=== PATIENT | female | born 1965 | race American Indian/Alaskan Native ===

== ENCOUNTER 2017-09-17 06:16 | Inpatient (IN) | payer BC, MEDICARE ==
[2017-09-17 07:21] LABS: URINE BILIRUBIN NEGATIVE (NEGATIVE); URINE BLOOD TRACE-INTACT (NEGATIVE); URINE GLUCOSE (UA) NEGATIVE (NEGATIVE); URINE LEUKOCYTE ESTERASE NEGATIVE Leu/uL (NEGATIVE); URINE PROTEIN NEGATIVE mg/dL (<30 mg/dL); URINE UROBILINOGEN 0.2 E.U./dL (<1 E.U./dL)
[2017-09-17 07:30] LABS: URINE APPEARANCE CLEAR (CLEAR); URINE COLOR YELLOW (YELLOW)
[2017-09-17] MEDS ORDERED: Propofol 10 mg/ml Inj (20 ML) ONE (07:31)
[2017-09-17] MEDS ORDERED: Midazolam 2 MG/2 ML VIAL ONE (07:31)
[2017-09-17 07:36] LABS: URINE BACTERIA FEW (NEG); URINE RBC 0 - 2 /hpf (0-2)
[2017-09-17] MEDS ORDERED: Rocuronium 10 mg/ml (5 ml) ONE (07:38)
[2017-09-17] MEDS ORDERED: Tranexamic Acid 1 ML ONE ×2 (08:25→10:57)
[2017-09-17] MEDS ORDERED: Desflurane Inhalation Anesthetic Liq (240 ml) ONE (08:31)
[2017-09-17] MEDS ORDERED: Neostigmine Methylsulfate 3mg/3ml Syringe IV ONE (09:26)
[2017-09-17] MEDS ORDERED: Morphine 1 mg/ml preservative-free Inj(Duramorph) ONE (09:27)
[2017-09-17] MEDS ORDERED: Sodium Chloride 0.9% 40 ML IV ONE (09:50)
[2017-09-17] MEDS ORDERED: Vancomycin 1 g Inj ONE (10:32)
[2017-09-17] MEDS ORDERED: Bupivacaine Liposomal Inj 20 ml INJ ONE (11:38)
--- NOTE | 2017-09-17 12:05 | CP.PCM.HP ---
History of Present Illness - History of Present Illness History of Present Illness: 51 F who failed conservative management, elected for a right total hip arthroplasty no hx of bleeding or blood clots, RI or stents NKDA Present on Admission - Present on Admission Any Indicators Present on Admission: No History of DVT/PE: No Past Patient History - Infectious Disease Hx of Infectious Diseases: None - Tetanus Immunizations Tetanus Immunization: Unknown - Past Medical History & Family History Past Medical History?: Yes - Past Social History Smoking Status: Light Smoker < 10 Cigarettes Daily - NEUROLOGICAL Hx Paralysis: No - HEMATOLOGICAL/ONCOLOGICAL Hx Blood Disorders: Yes Hx Anemia: Yes Hx Blood Transfusions: Yes Hx Blood Transfusion Reaction: No - INTEGUMENTARY Hx Dermatological Problems: Yes Hx Eczema: Yes (fingers) - MUSCULOSKELETAL/RHEUMATOLOGICAL Hx Back Pain: Yes - GASTROINTESTINAL Hx Gastrointestinal Disorders: Yes - SURGICAL HISTORY Hx Joint Replacement: Yes (Left 06/2014 Revision 07/2014 hip) - ANESTHESIA Hx Anesthesia Reactions: No Hx Malignant Hyperthermia: No Meds Allergies/Adverse Reactions: Allergies Allergy/AdvReac Type Severity Reaction Status Date / Time FISH Allergy Intermediate VOMITING Verified 09/03/17 12:21 peanut Allergy Intermediate SHORTNESS Verified 09/03/17 12:21 OF BREATH Physical Exam - Constitutional Appears: Well, No Acute Distress - Head Exam Head Exam: NORMAL INSPECTION - Neck Exam Neck exam: Positive for: Normal Inspection - Respiratory Exam Respiratory Exam: NORMAL BREATHING PATTERN - Cardiovascular Exam Cardiovascular Exam: RRR - Extremities Exam Additional comments: Calf soft nontender. NVI distally - Expanded Lower Extremities Exam Right Hip exam: shortening Knee exam: normal inspection - Neurological Exam Neurological exam: Alert, Oriented x3 - Psychiatric Exam Psychiatric exam: Normal Affect, Normal Mood - Skin Skin Exam: Dry, Intact, Normal Color Assessment & Plan (1) Osteoarthritis of right hip Status: Acute (2) Osteoarthritis of right hip Status: Acute - Assessment and Plan (Free Text) Plan: Right total hip replacement Type and Screen NPO Labs reviewed Patient medically optimized for a right total hip replacement
[2017-09-17] MEDS ORDERED: HYDROmorphone 0.5 mg/0.5 ml ISec IVP PRN (12:15)
[2017-09-17] MEDS ORDERED: oxyCODONE 10 mg Immediate Release Tab PO PRN (12:42)
--- NOTE | 2017-09-17 13:07 | RAD ---
PROCEDURE: Radiographs of the pelvis. HISTORY: s/p R ANGELIKA COMPARISON: Left hip with pelvis 09/15/2015. FINDINGS: BONES: Pelvic Bones: No interval fracture or dislocation identified. The pubic symphysis remains intact. No destructive bony lesion identified. Interval right total replacement is been identified as well as revision of prior left shoulder replacement. In both full portion of the femoral component is not included in this exam with the tip off the image. Hips: Grossly unremarkable. JOINTS: Sacroiliac Joints: Interval right total replacement with adequate result achieved. Apparent prior revision of left total replacement. Bilateral sacroiliac joints appear remarkable for limited degenerative joint disease symmetrically. Pubic Symphysis: Unremarkable. OTHER FINDINGS: Postop soft tissue edematous changes seen in the right hip soft tissues locally. IMPRESSION: Interval right total replacement with limited postop changes seen in local soft tissues and interval left hip replacement revision.
[2017-09-17] MEDS: HYDROmorphone 1 mg/ml ISec IVP PRN ×2 (15:19→21:25)
[2017-09-17] MEDS: Sodium Chloride 0.9% 1,000 ML IV SCH (15:21)
[2017-09-17 18:11] VITALS: BMI 33.3
--- NOTE | 2017-09-17 23:56 | OP ---
PROCEDURE DATE: 09/17/2017 PREOPERATIVE DIAGNOSES: Right hip arthritis and limb length discrepancy. POSTOPERATIVE DIAGNOSES: Right hip arthritis and limb length discrepancy. PROCEDURE: Right total hip arthroplasty. SURGEON: Main Whyte MD. HEDIS REVIEW NURSE: Dr. Whyte is assisted by Ciera Mathias, the physician product safety technical assistant and Marilee Guzman, the physician product safety technical assistant. Both physician assistants were scrubbed and present throughout the entire case and helped with patient positioning, holding of the leg during the case, retraction as well as wound closure. TYPE OF ANESTHESIA: General. COMPLICATIONS: None. ESTIMATED BLOOD LOSS: 150 mL. IMPLANT: Biomet dual mobility total hip. INDICATIONS FOR PROCEDURE: This is a 51-year-old female with longstanding right hip and groin pain. Clinical examination was consistent with pain with weightbearing. Decreased passive and active internal and external rotation and approximately 2 cm limb length discrepancy. Radiographic examination consistent with advanced degenerative joint disease of the hip. After a period of failed nonsurgical management, recommendations were for a right total hip arthroplasty. The risks, benefits and alternatives of procedure were discussed with the patient and an informed consent was obtained. DESCRIPTION OF PROCEDURE: After the surgical site was signed and verified in the preoperative holding area, the patient was taken to the operating room and placed supine on the operating table. After administration of general anesthesia, the patient received 3 g of Ancef IV. The patient was positioned in the lateral decubitus position with the right hip up towards the ceiling. Venodyne boot was placed on the nonoperative extremity. Care was taken to make sure all bony prominences and nerves were well padded and protected and the right lower extremity was prepped and draped in the usual sterile fashion. The 2 pins for the Intellijoint were inserted in the iliac crest and at this point, approximately 12 cm curvilinear incision was made over the proximal femur. Soft tissue was dissected sharply down to the fascia. The fascia was incised. Charnley retractor was placed. The greater troc was exposed and the plate for the Intellijoint was then placed on the greater troc and screwed into place. At this point, short external rotators were identified, tagged and resected off the proximal femur. T-type capsulotomy was performed and the hip was dislocated. Based on preoperative template, our femoral neck resection was performed and the femoral neck was removed and passed off the field as a specimen. At this point, an anterior capsulotomy was performed exposing the acetabulum. Acetabulum labrum was excised and at this point, the acetabulum was reamed sequentially to allow for a 52 mm press-fit cup. Care was taken to maintain proper acetabular height and version. With the trial cup was placed and with the assistance of the Intellijoint, satisfied with our position. The trial was removed and the hip was pulse lavaged with antibiotic saline solution. Bony surfaces were dried and the actual cup was impacted into place. The cup was then fixed with 2 screws. At this point, our attention was directed to the femur. The medullary canal of the proximal femur was reamed and broached sequentially to allow for a 11 mm press-fit stem. The calcar was planed and a trial head and neck were placed. The hip was reduced and the patient was noted to have approximately equal limb lengths and stable. At this point, the hip was dislocated and the trial components were removed. The hip was once again pulse lavaged and the actual acetabular liner was then impacted into place. The actual stem was then also impacted and moving it careful to maintain proper version. The actual head was then impacted over the neck and the hip was reduced and gain noted to be stable with approximately equal limb lengths. At this point, the hip was pulse lavaged and closed in a layered fashion. A MERCEDSE dressing was applied and the patient was transferred supine, awakened and taken to the recovery room in stable condition. Main Whyte MD
[2017-09-18] MEDS: Sodium Chloride 0.9% 1,000 ML IV SCH ×2 (00:35→10:04)
[2017-09-18] MEDS: HYDROmorphone 1 mg/ml ISec IVP PRN ×4 (04:42→22:14)
--- NOTE | 2017-09-18 05:47 | CON ---
DATE: HISTORY OF PRESENT ILLNESS: The patient is a 51-year-old, black female known to me from office practice, has been having chronic right hip pain for very long time, had elective surgery scheduled for today for total right hip replacement and arthroplasty. The patient has been on high dose of narcotics for very long time. PAST MEDICAL HISTORY: Significant for: 1. Chronic anemia. 2. History of total hip replacement in June of 2014 that was revised in November of 2015. 3. History of gastroesophageal reflux disease. 4. Chronic back pain. 5. History of anemia. ALLERGIES: SHE IS ALLERGIC TO FISH AND PEANUTS. MEDICATIONS AT HOME: She is on Xanax 0.25 at bedtime, she is on oxycodone 30 mg four times a day, gabapentin 600 three times a day, Celebrex 200 daily. SOCIAL HISTORY: She is , lives with her . Still smokes. She used to be a heavy smoker in the past. REVIEW OF SYSTEMS: Significant for right hip pain. PHYSICAL EXAMINATION GENERAL: She is awake, alert, oriented, seen in PACU, complaining of pain to the surgical site. VITAL SIGNS: She is afebrile, pulse 80, respirations 20, blood pressure 149/79. LUNGS: Bilateral good airflow. No rhonchi or crackles. HEART: S1 and S2 audible. ABDOMEN: Soft, nontender. No rebound. No guarding. NEUROLOGICAL: The patient is awake, alert, oriented, communicative. LABORATORY DATA: No new lab available today. ASSESSMENT: 1. Status post total right hip replacement. 2. Gastroesophageal reflux disease. 3. History of gastritis. 4. Anxiety disorder. PLAN: The patient is currently on cefazolin every 8. We will start her on laxatives. She is on analgesics. Eliquis had been started by surgical team. She is on IV fluids. We will follow up her CBC, CMP in a.m. Gala Vallecillo MD
[2017-09-18 06:28] LABS: BASO # 0.01 K/mm3 (0.0-2.0); BASO % 0.1 % (0.0-3.0); EOS % 0.4 % (1.5-5.0); GRAN # 7.12 (1.4-6.5); GRAN % 73.7 % (50.0-68.0); LYMPH # 1.4 (1.2-3.4); LYMPH % 14.6 % (22.0-35.0); MEAN CELL VOLUME 93.4 fl (80.0-105.0); MEAN CORPUSCULAR HEMOGLOBIN 30.5 pg (25.0-35.0); MEAN CORPUSCULAR HGB CONC 32.6 g/dl (31.0-37.0); MEAN PLATELET VOLUME 9.9 fl (7.0-11.0); MONO # 1.1 (0.1-0.6); MONO % 11.2 % (1.0-6.0); RBC 2.59 10^6/uL (3.5-6.1); RED CELL DISTRIBUTION WIDTH 14.5 % (11.5-14.5); WHITE BLOOD COUNT 9.7 10^3/ul (4.5-11.0)
[2017-09-18 06:47] LABS: HEMOGLOBIN 7.9 g/dL (12.0-16.0)
[2017-09-18 06:50] LABS: BLOOD UREA NITROGEN 4 mg/dL (7-21); CALCIUM 8.6 mg/dL (8.4-10.5); GFR AFRICAN-AMERICAN > 60; GFR NON-AFRICAN AMERICAN > 60
[2017-09-18] MEDS ORDERED: Potassium Chloride 20 mEq ER Tab PO ONE (07:53)
--- NOTE | 2017-09-18 08:32 | CP.PCM.PN ---
Subjective - Date & Time of Evaluation Date of Evaluation: 09/18/17 Time of Evaluation: 08:06 - Subjective Subjective: Patient POD#1 s/p R ANGELIKA. Patient alert and awake, sitting up in bed, comfortable. Patient states pain is controlled. Hip abduction pillow is in place afebrile now, max temp 101.2 WBC:9.7 Hgb 7.9 R hip: dressings are dry and intact. Patient can actively perform dorsi and plantar flexion with good strength. Sensation is intact to light touch. Calf and thigh are soft nontender. NVI distally POD#1 s/p R ANGELIKA Cont PT Cont hip abduction pillow at all times while in bed Venofer 100mg given, will monitor hgb Potassium 3.3, Kdur20 given. Cont DVT prophylaxis Dressing changes tomorrow. Objective - Vital Signs/Intake and Output Vital Signs (last 24 hours): Temp Pulse Resp BP Pulse Ox 98.6 F 92 H 20 145/76 100 09/18/17 07:17 09/17/17 23:19 09/17/17 23:19 09/17/17 23:19 09/17/17 23:19 Intake and Output: 09/18/17 09/18/17 06:59 18:59 Intake Total 660 Output Total 1125 Balance -465 - Medications Medications: Current Medications Acetaminophen (Tylenol 325mg Tab) 650 mg PO Q6 [facility] Last Admin: 09/18/17 06:17 Dose: 650 mg Alprazolam (Xanax) 0.25 mg PO HS PRN; Protocol PRN Reason: Sleep Stop: 09/24/17 12:45 Apixaban (Eliquis) 2.5 mg PO BID [facility] PRN Reason: Protocol Docusate Sodium (Colace) 100 mg PO BID [facility] Last Admin: 09/17/17 18:25 Dose: 100 mg Gabapentin (Neurontin) 600 mg PO TID PRN; Protocol PRN Reason: Pain, moderate (4-7) Hydromorphone HCl (Dilaudid) 1 mg IVP Q4H PRN PRN Reason: Pain, severe (8-10) Last Admin: 09/18/17 04:42 Dose: 1 mg Sodium Chloride (Sodium Chloride 0.9%) 1,000 mls @ 100 mls/hr IV .Q10H [facility] Last Admin: 09/18/17 00:35 Dose: 100 mls/hr Multivitamins/Minerals (Therapeutic-M Tab) 1 tab PO DAILY [facility] Ondansetron HCl (Zofran Inj) 4 mg IVP ONCE PRN PRN Reason: Nausea/Vomiting Oxycodone HCl (Oxycodone Immediate Release Tab) 10 mg PO Q6H PRN PRN Reason: Pain, moderate (4-7) - Labs Labs: 09/18/17 06:00 09/18/17 06:00 Assessment and Plan (1) Osteoarthritis of right hip Status: Acute (2) Osteoarthritis of right hip Status: Acute
[2017-09-18] MEDS: Multivitamin With Minerals Tab PO SCH (10:08)
--- NOTE | 2017-09-18 13:29 | PN ---
DATE: SUBJECTIVE: The patient is 51 years old, seen and examined, sitting in chair, got out of bed. Complained of pain at surgical site. PHYSICAL EXAMINATION: VITAL SIGNS: She has a temperature of 101.2, pulse 93, respirations 18, blood pressure 106/51. LUNGS: Bilateral fair airflow. No rhonchi or crackle. HEART: S1 and S2 audible. ABDOMEN: Soft. Nontender. No rebound. No guarding. NEUROLOGIC: The patient is awake and alert and communicative. EXTREMITIES: Right leg, no edema. Able to wiggle her toes. LABORATORY EXAM: WBC is 9.7, hemoglobin 7.9, hematocrit 24.2, platelet of 237. Chemistry: Sodium 137, potassium 3.3, chloride 105, CO2 of 27, BUN 4, creatinine 0.6, blood sugar of 116. ASSESSMENT: 1. Status post right hip replacement and reconstruction surgery. 2. Anemia. 3. Hypokalemia. 4. Anxiety disorder. PLAN: The patient is given dose of potassium, also received iron infusion. We will follow up CBC and CMP. If her hemoglobin is below 8, might need blood transfusion. We will follow up this patient in the a.m. Gala Vallecillo MD
[2017-09-18] MEDS: Cholecalciferol 1,000 INTLU TAB PO SCH (17:11)
[2017-09-19] MEDS: Sodium Chloride 0.9% 1,000 ML IV SCH
[2017-09-19] MEDS: HYDROmorphone 1 mg/ml ISec IVP PRN ×4 (04:16→22:19)
[2017-09-19 07:22] LABS: BASO # 0.01 K/mm3 (0.0-2.0); BASO % 0.1 % (0.0-3.0); EOS # 0.1 (0.0-0.7); EOS % 1.2 % (1.5-5.0); GRAN # 8.92 (1.4-6.5); GRAN % 78.7 % (50.0-68.0); HEMOGLOBIN 7.4 g/dL (12.0-16.0); LYMPH # 1.3 (1.2-3.4); LYMPH % 11.6 % (22.0-35.0); MEAN CELL VOLUME 93.1 fl (80.0-105.0); MEAN CORPUSCULAR HEMOGLOBIN 30.1 pg (25.0-35.0); MEAN CORPUSCULAR HGB CONC 32.3 g/dl (31.0-37.0); MEAN PLATELET VOLUME 10.1 fl (7.0-11.0); MONO % 8.4 % (1.0-6.0); RBC 2.46 10^6/uL (3.5-6.1); RED CELL DISTRIBUTION WIDTH 14.5 % (11.5-14.5); WHITE BLOOD COUNT 11.3 10^3/ul (4.5-11.0)
[2017-09-19 07:37] LABS: BLOOD UREA NITROGEN 4 mg/dL (7-21); CALCIUM 8.9 mg/dL (8.4-10.5); GFR AFRICAN-AMERICAN > 60; GFR NON-AFRICAN AMERICAN > 60
[2017-09-19] MEDS ORDERED: Potassium Chloride 20 mEq ER Tab PO ONE ×2 (08:49→17:54)
[2017-09-19] MEDS ORDERED: Ergocalciferol 50,000 Intl Units Cap PO SCH (09:00)
--- NOTE | 2017-09-19 09:13 | CP.PCM.PN ---
Subjective - Date & Time of Evaluation Date of Evaluation: 09/19/17 Time of Evaluation: 09:05 - Subjective Subjective: Patient POD#2 s/p R ANGELIAK. Patient alert and awake. Laying in bed. Denies any significant pain, dizziness or lightheadedness. Aferbile WBC 11.3 hgb 7.4 R hip: dressings and MERCEDES wound vac removed. Incision clean and intact. There is no erythema or drainage. No signs of cellulitis. Incision cleaned with NSS and new light dry dressings applied. Sensation intact to light touch. 5/5 strength with resisted dorsi and plantar flexion. Calf and thigh soft nontender. NVI distally POD#2 s/p R ANGELIKA Cont PT Cont DVT prophylaxis Will monitor Hgb Plan to discharge tomorrow to home Objective - Vital Signs/Intake and Output Vital Signs (last 24 hours): Temp Pulse Resp BP Pulse Ox 99.5 F 98 H 20 102/56 L 98 09/19/17 06:00 09/19/17 06:00 09/19/17 06:00 09/19/17 06:00 09/19/17 06:00 Intake and Output: 09/19/17 09/19/17 06:59 18:59 Intake Total 2940 Balance 2940 - Medications Medications: Current Medications Acetaminophen (Tylenol 325mg Tab) 650 mg PO Q6 [facility] Last Admin: 09/19/17 06:13 Dose: 650 mg Alprazolam (Xanax) 0.25 mg PO HS PRN; Protocol PRN Reason: Sleep Stop: 09/24/17 12:45 Apixaban (Eliquis) 2.5 mg PO BID [facility] PRN Reason: Protocol Last Admin: 09/18/17 17:11 Dose: 2.5 mg Cholecalciferol (Vitamin D) 2,000 intlu PO DAILY [facility] Last Admin: 09/18/17 17:11 Dose: 2,000 intlu Docusate Sodium (Colace) 100 mg PO BID [facility] Last Admin: 09/18/17 17:12 Dose: 100 mg Ergocalciferol (Drisdol 50,000 Intl Units Cap) 1 cap PO Q7D [facility] Gabapentin (Neurontin) 600 mg PO TID PRN; Protocol PRN Reason: Pain, moderate (4-7) Hydromorphone HCl (Dilaudid) 1 mg IVP Q4H PRN PRN Reason: Pain, severe (8-10) Last Admin: 09/19/17 04:16 Dose: 1 mg Sodium Chloride (Sodium Chloride 0.9%) 1,000 mls @ 100 mls/hr IV .Q10H [facility] Last Admin: 09/19/17 00:00 Dose: 100 mls/hr Multivitamins/Minerals (Therapeutic-M Tab) 1 tab PO DAILY [facility] Last Admin: 09/18/17 10:08 Dose: 1 tab Ondansetron HCl (Zofran Inj) 4 mg IVP ONCE PRN PRN Reason: Nausea/Vomiting Oxycodone HCl (Oxycodone Immediate Release Tab) 10 mg PO Q6H PRN PRN Reason: Pain, moderate (4-7) Last Admin: 09/18/17 11:53 Dose: 10 mg - Labs Labs: 09/19/17 06:45 09/19/17 06:45 Assessment and Plan (1) Osteoarthritis of right hip Status: Acute (2) Osteoarthritis of right hip Status: Acute
[2017-09-19] MEDS: Cholecalciferol 1,000 INTLU TAB PO SCH (10:50)
[2017-09-19] MEDS: Multivitamin With Minerals Tab PO SCH (10:51)
[2017-09-19 14:21] VITALS: RESP 18
--- NOTE | 2017-09-19 16:55 | PN ---
DATE: SUBJECTIVE: The patient is 51-year-old seen and examined, lying in bed, minimal pain. Complains of feeling weak and tired, dizzy when she gets up. PHYSICAL EXAMINATION: VITAL SIGNS: She is afebrile, pulse 98, respirations 20, blood pressure 102/56. HEART: S1 and S2 audible. LUNGS: Bilateral good airflow. No rhonchi or crackles ABDOMEN: Soft, nontender, no rebound, no guarding. NEUROLOGICAL: The patient is awake and alert, oriented, communicative. EXTREMITIES: Her right foot is warm, able to wiggle her toes. LABORATORY DATA: WBC is 11.3, hemoglobin 7.4, hematocrit 22.9, platelets of 222. Chemistry: Sodium 135, potassium 3.3, chloride 105, CO2 30, BUN 4, creatinine 0.6, blood sugar of 105. ASSESSMENT: 1. Symptomatic anemia. 2. Status post right hip reconstruction surgery. 3. Anemia. 4. Anxiety disorder. PLAN: We will give her 2 blood transfusions. The patient's oral intake is fair. We will discontinue IV fluids, encourage for p.o. fluids. We will follow up CBC and CMP in a.m. Gala Vallecillo MD
[2017-09-19] MEDS ORDERED: DiphenhydrAMINE 50 mg/ml Inj IVP STA (18:56)
[2017-09-19] MEDS ORDERED: DiphenhydrAMINE 50 mg/ml Inj ONE (18:58)
--- NOTE | 2017-09-19 19:02 | CP.PCM.PN ---
Subjective - Date & Time of Evaluation Date of Evaluation: 09/19/17 Time of Evaluation: 18:55 - Subjective Subjective: Received page from RN. Patient recently received transfusion and having some itching. No pre-medications given although patient has been receiving tylenol for pain since her surgery. Seen and examined. No major rash or otherwise noted throughout body but patient does note that she's had transfusions before in the past and her skin is "very sensitive" when it comes to things like this. Added 50mg IVP of benadryl and 100mg IVP of solu-cortef which patient should received as pre-medications in the future for transfusions. RN was able to get in contact with Dr. Vallecillo who said to hold the second transfusion for now. Kennedy Shelley D.O.OMarcel On Duty (DOOD) Objective - Vital Signs/Intake and Output Vital Signs (last 24 hours): Temp Pulse Resp BP Pulse Ox 99.0 F 89 18 125/89 98 09/19/17 17:34 09/19/17 17:34 09/19/17 17:34 09/19/17 17:34 09/19/17 06:00 Intake and Output: 09/19/17 09/19/17 06:59 18:59 Intake Total 2940 1040 Balance 2940 1040 - Medications Medications: Current Medications Acetaminophen (Tylenol 325mg Tab) 650 mg PO Q6 [facility] Last Admin: 09/19/17 18:27 Dose: 650 mg Alprazolam (Xanax) 0.25 mg PO HS PRN; Protocol PRN Reason: Sleep Stop: 09/24/17 12:45 Apixaban (Eliquis) 2.5 mg PO BID [facility] PRN Reason: Protocol Last Admin: 09/19/17 17:41 Dose: 2.5 mg Cholecalciferol (Vitamin D) 2,000 intlu PO DAILY [facility] Last Admin: 09/19/17 10:50 Dose: 2,000 intlu Docusate Sodium (Colace) 100 mg PO BID [facility] Last Admin: 09/19/17 17:41 Dose: 100 mg Gabapentin (Neurontin) 600 mg PO TID PRN; Protocol PRN Reason: Pain, moderate (4-7) Hydromorphone HCl (Dilaudid) 1 mg IVP Q4H PRN PRN Reason: Pain, severe (8-10) Last Admin: 09/19/17 17:40 Dose: 1 mg Multivitamins/Minerals (Therapeutic-M Tab) 1 tab PO DAILY [facility] Last Admin: 09/19/17 10:51 Dose: 1 tab Ondansetron HCl (Zofran Inj) 4 mg IVP ONCE PRN PRN Reason: Nausea/Vomiting Oxycodone HCl (Oxycodone Immediate Release Tab) 10 mg PO Q6H PRN PRN Reason: Pain, moderate (4-7) Last Admin: 09/18/17 11:53 Dose: 10 mg - Labs Labs: 09/19/17 06:45 09/19/17 06:45
[2017-09-19 22:33] VITALS: O2SAT 97
[2017-09-20] MEDS: HYDROmorphone 0.5 mg/0.5 ml ISec IVP PRN ×2 (05:56→10:35)
[2017-09-20 07:25] LABS: BASO # 0.01 K/mm3 (0.0-2.0); BASO % 0.1 % (0.0-3.0); EOS % 0.2 % (1.5-5.0); GRAN # 10.36 (1.4-6.5); GRAN % 81.5 % (50.0-68.0); HEMOGLOBIN 8.4 g/dL (12.0-16.0); LYMPH # 1.4 (1.2-3.4); LYMPH % 11.1 % (22.0-35.0); MEAN CELL VOLUME 91.2 fl (80.0-105.0); MEAN CORPUSCULAR HEMOGLOBIN 29.7 pg (25.0-35.0); MEAN CORPUSCULAR HGB CONC 32.6 g/dl (31.0-37.0); MEAN PLATELET VOLUME 10.3 fl (7.0-11.0); MONO # 0.9 (0.1-0.6); MONO % 7.1 % (1.0-6.0); RBC 2.83 10^6/uL (3.5-6.1); RED CELL DISTRIBUTION WIDTH 16.3 % (11.5-14.5); WHITE BLOOD COUNT 12.7 10^3/ul (4.5-11.0)
[2017-09-20 07:44] LABS: BLOOD UREA NITROGEN 3 mg/dL (7-21); CALCIUM 9.3 mg/dL (8.4-10.5); GFR AFRICAN-AMERICAN > 60; GFR NON-AFRICAN AMERICAN > 60
[2017-09-20 08:40] VITALS: BP 117/55; PULSE 92; TEMP 100
[2017-09-20] MEDS: Multivitamin With Minerals Tab PO SCH (10:14)
[2017-09-20] MEDS: Cholecalciferol 1,000 INTLU TAB PO SCH (10:14)
[2017-09-20] MEDS ORDERED: Potassium Chloride 20 mEq/15 ml LIQ UD PO STA (12:52)
[2017-09-20] MEDS ORDERED: POLYETHYLENE GLYCOL 3350 17 GM/Dose PACKET PO ONE (13:00)
--- NOTE | 2017-09-20 14:14 | CP.PCM.DIS ---
Provider - Provider Date of Admission: 09/17/17 06:16 Attending physician: Gala Vallecillo MD Primary care physician: Gala Vallecillo MD Time Spent in preparation of Discharge (in minutes): 30 Diagnosis - Discharge Diagnosis (1) Osteoarthritis of right hip Status: Acute (2) Osteoarthritis of right hip Status: Acute (3) Vitamin D deficiency Status: Chronic Hospital Course - Lab Results Lab Results: Most Recent Lab Values WBC 12.7 10^3/ul (4.5-11.0) H 09/20/17 06:30 RBC 2.83 10^6/uL (3.5-6.1) L 09/20/17 06:30 Hgb 8.4 g/dL (12.0-16.0) L 09/20/17 06:30 Hct 25.8 % (36.0-48.0) L 09/20/17 06:30 MCV 91.2 fl (80.0-105.0) 09/20/17 06:30 MCH 29.7 pg (25.0-35.0) 09/20/17 06:30 MCHC 32.6 g/dl (31.0-37.0) 09/20/17 06:30 RDW 16.3 % (11.5-14.5) H 09/20/17 06:30 Plt Count 251 10^3/uL (120.0-450.0) 09/20/17 06:30 MPV 10.3 fl (7.0-11.0) 09/20/17 06:30 Gran % 81.5 % (50.0-68.0) H 09/20/17 06:30 Lymph % (Auto) 11.1 % (22.0-35.0) L 09/20/17 06:30 [place] % (Auto) 7.1 % (1.0-6.0) H 09/20/17 06:30 Eos % (Auto) 0.2 % (1.5-5.0) L 09/20/17 06:30 Baso % (Auto) 0.1 % (0.0-3.0) 09/20/17 06:30 Gran # 10.36 (1.4-6.5) H 09/20/17 06:30 Lymph # (Auto) 1.4 (1.2-3.4) 09/20/17 06:30 [place] # (Auto) 0.9 (0.1-0.6) H 09/20/17 06:30 Eos # (Auto) 0.0 (0.0-0.7) 09/20/17 06:30 Baso # (Auto) 0.01 K/mm3 (0.0-2.0) 09/20/17 06:30 Sodium 138 mmol/L (132-148) 09/20/17 06:30 Potassium 3.4 mmol/L (3.6-5.0) L 09/20/17 06:30 Chloride 104 mmol/L (98-107) 09/20/17 06:30 Carbon Dioxide 27 mmol/L (21-33) 09/20/17 06:30 Anion Gap 10 (10-20) 09/20/17 06:30 BUN 3 mg/dL (7-21) L 09/20/17 06:30 Creatinine 0.5 mg/dl (0.7-1.2) L 09/20/17 06:30 Est GFR ( Amer) > 60 09/20/17 06:30 Est GFR (Non-Af Amer) > 60 09/20/17 06:30 Random Glucose 128 mg/dL (70-110) H 09/20/17 06:30 Calcium 9.3 mg/dL (8.4-10.5) 09/20/17 06:30 25-OH Vitamin D Total < 12.8 NG/ML (30.0-100.0) L 09/18/17 06:00 Urine Color Yellow (YELLOW) 09/17/17 06:51 Urine Appearance Clear (CLEAR) 09/17/17 06:51 Urine pH 6.0 (4.7-8.0) 09/17/17 06:51 Ur Specific [place] >= 1.030 (1.005-1.035) 09/17/17 06:51 Urine Protein Negative mg/dL (<30 mg/dL) 09/17/17 06:51 Urine Glucose (UA) Negative mg/dL (NEGATIVE) 09/17/17 06:51 Urine Ketones Negative mg/dL (NEGATIVE) 09/17/17 06:51 Urine Blood Trace-intact (NEGATIVE) H 09/17/17 06:51 Urine Nitrate Negative (NEGATIVE) 09/17/17 06:51 Urine Bilirubin Negative (NEGATIVE) 09/17/17 06:51 Urine Urobilinogen 0.2 E.U./dL (<1 E.U./dL) 09/17/17 06:51 Ur Leukocyte Esterase Negative Raman/uL (NEGATIVE) 09/17/17 06:51 Urine RBC 0 - 2 /hpf (0-2) 09/17/17 06:51 Urine WBC 2 - 5 /hpf (0-6) 09/17/17 06:51 Ur Epithelial Cells 4 - 5 /hpf (0-5) 09/17/17 06:51 Urine Bacteria Few (NEG) 09/17/17 06:51 Blood Type B NEGATIVE 09/17/17 07:00 Antibody Screen Negative 09/17/17 07:00 Crossmatch See Detail 09/17/17 07:00 BBK History Checked Patient has bt 09/17/17 07:00 - Hospital Course Hospital Course: 51F with PMH: with right hip osteoarthritis failed conservative management and elected for THR. Postoperative imaging demonstrated acceptable position of prosthesis. Medical consultation was requested for post operative medical management. Patients post operative course was complicated by acute blood loss anemia, for which patient received PRBC transfusion of 1 unit. Patient tolerated PT/OT well. Patient received VTE prophylaxis in the form of Eliquis 2.5mg BID and venodynes. PT was discharged to home with home physical therapy and visiting nurse for wound care and continued on home medications as well as the Eliquis. Patient was WBAT RLE, and to f/u Dr. Whyte within 2 weeks. Discharge Exam - Head Exam Head Exam: NORMAL INSPECTION, NORMOCEPHALIC - Respiratory Exam Respiratory Exam: NORMAL BREATHING PATTERN - Cardiovascular Exam Cardiovascular Exam: RRR - Extremities Exam Additional comments: dressings dry and intact. Calf and thigh soft nontender. NVI distally - Neurological Exam Neurological exam: Alert, Oriented x3 - Psychiatric Exam Psychiatric exam: Normal Affect, Normal Mood Discharge Plan - Discharge Medications Prescriptions: Apixaban [Eliquis] 2.5 mg PO BID #28 tab Cholecalciferol [Vitamin D 1000 IU] 2,000 intlu PO DAILY 10 Days #10 tab Docusate [Colace] 100 mg PO BID 7 Days #14 cap - Follow Up Plan Disposition: HOME/ ROUTINE Additional Instructions: s/p R ANGELIKA discharge to home with home physical therapy and visiting nurse for wound care Cont hip abduction pillow at all times while in bed Cont DVT prophylaxis with Eliquis 2.5mg BID Will follow up with patient in [address] Whyte's office Discussed with Pato Roe and he agrees Referrals: Gala Vallecillo MD [Primary Care Provider] -
--- NOTE | 2017-09-21 05:35 | DS ---
HISTORY OF PRESENT ILLNESS: Patient is a 51-year-old, seen and examined, lying in bed and doing well. Received one blood transfusion yesterday, followed by having generalized itching and rash. So she was given Benadryl and steroids. Seems to be doing well. Able to get out of bed. Still did not have bowel movement. PHYSICAL EXAMINATION: VITAL SIGNS: She has temperature of 100, pulse 92, respirations 18, blood pressure 117/65. LUNGS: Bilateral good airflow. No rhonchi or crackles. HEART: S1, S2 audible. ABDOMEN: Soft, nontender. No rebound, no guarding. NEUROLOGIC: Patient is awake, alert, oriented, communicative. EXTREMITIES: Right leg no edema, able to wiggle her toes and seems to be warm. PT is palpable. LABORATORY DATA: WBC is 12.7, hemoglobin 8.4, hematocrit 25.8, platelets of 251. Chemistry, sodium 138, potassium 3.4, chloride 104, CO2 27, BUN 3, creatinine 0.5, blood sugar of 128. ASSESSMENT: 1. Status post right hip surgery with arthroplasty. 2. Postoperative anemia, status post blood transfusion. 3. Osteoarthritis. 4. Anxiety disorder. PLAN: Patient is on DVT prophylaxis. She will be given Venofer today. She will be receiving a dose of potassium. We will follow up CBC, CMP in a.m. Give her a dose of Relistor and laxative. We will follow up patient. Gala Vallecillo MD
== END 2017-09-20 15:40 | disposition home or self-care (01) | DRG 470 ==
LOC: SDAINP 06:16 → EDSTATUS 07:30 → 5RNO 13:48
PROVIDERS: ADMIT Orthopaedic Surgery; ATTEND Internal Medicine
PROC: 0SR90JA Replacement of Right Hip Joint with Synthetic Substitute, Uncemented, Open Approach (ICD-10-PCS; principal; 2017-09-17 07:30)
PROC: 30233N1 Transfusion of Nonautologous Red Blood Cells into Peripheral Vein, Percutaneous Approach (ICD-10-PCS; 2017-09-19)
DX: M16.11 Unilateral primary osteoarthritis, right hip (principal); D62 Acute posthemorrhagic anemia; L29.9 Pruritus, unspecified; R21 Rash and other nonspecific skin eruption; E87.6 Hypokalemia; M21.70 Unequal limb length (acquired), unspecified site; E55.9 Vitamin D deficiency, unspecified; G89.29 Other chronic pain; M54.9 Dorsalgia, unspecified; K21.9 Gastro-esophageal reflux disease without esophagitis; F41.9 Anxiety disorder, unspecified; F17.210 Nicotine dependence, cigarettes, uncomplicated; Z91.010 Allergy to peanuts; Z91.013 Allergy to seafood

== ENCOUNTER 2018-06-30 13:24 | Outpatient (CLI) | payer BC, MEDICARE | END 2018-06-30 13:25 | disposition home or self-care (01) | LOC: RAD 13:25 ==

== ENCOUNTER 2018-10-06 17:26 | Emergency (ER) | payer BC, MEDICARE | END 2018-10-06 22:31 | disposition home or self-care (01) | LOC: ED 17:26 ==